=== PATIENT | female | born 1955 | race Caucasian/White ===

== ENCOUNTER → 2018-07-22 | Outpatient (REF) | payer OTHER ==
[2018-07-22 18:55] LABS: APPEARANCE, URINE CLEAR (CLEAR); BACTERIA, URINE AUTO NEGATIVE (NEGATIVE); BILIRUBIN, URINE AUTO NEGATIVE (NEGATIVE); BLOOD, URINE BLOOD NEGATIVE (NEGATIVE); COLOR, URINE YELLOW (YELLOW); GLUCOSE, URINE (UA) AUTO NEGATIVE (NEGATIVE); KETONE, URINE AUTO NEGATIVE (NEGATIVE); LEUKOCYTE ESTERASE, URINE AUTO NEGATIVE (NEGATIVE); NITRITE, URINE AUTO NEGATIVE (NEGATIVE); PROTEIN, URINE AUTO NEGATIVE (NEGATIVE); RBC, URINE AUTO 0 /HPF (0-3); SPECIFIC GRAVITY URINE AUTO 1.023 (1.002-1.035); SQUAMOUS EPITHELIAL CELL UR AU 0 /HPF (0-6); WBC, URINE AUTO 1 /HPF (0-3)
== END ==
LOC: M SMT 16:55
DX: R32 Unspecified urinary incontinence (principal)
CPT/HCPCS: 81001

== ENCOUNTER 2019-07-14 09:54 | Emergency (ER) | payer MEDICARE, OTHER ==
[~2019-07-14] VITALS: Ht 160 cm; Wt 86.5 kg
[~2019-07-14 09:54] MED LIST: ASPI81TA7 PO; COLA50CA3 PO; COZA100T2 PO; CYMB60CA3 PO; FLOVENT INH; GABAPOW41 PO; LANTUS INSULIN INJ; LASIX PO; LISIPOW PO; LOSARTAN PO; METFORMIN PO; NITROGLYCERIN SL; OMEPPOW18 PO; OXYC1TAB23 PO; POTA-77 PO; SIMVPOW2 PO; SKELAXIN PO; TOPA25TA PO; TRAVATAN EYE DROPS OU; ZEST10TA4 PO
[2019-07-14] MEDS ORDERED: ACETAMINOPHEN 500 MG TAB PO ONE (11:00)
[2019-07-14] MEDS ORDERED: KETOROLAC 30 MG/ML VIAL (J1885) IV ONE (11:00)
[2019-07-14] MEDS ORDERED: diphenhydrAMINE INJ 50MG/ML VIAL (J1200) IV ONE (11:00)
[2019-07-14] MEDS ORDERED: METOCLOPRAMIDE INJ 10MG/2ML VIAL (J2765) IV ONE (11:00)
[2019-07-14] MEDS ORDERED: NS 1,000 ML IV ONE (11:00)
[2019-07-14 11:14] LABS: HEMATOCRIT 37.3 % (36.0-47.0); HEMOGLOBIN 12.4 g/dl (12.0-15.5); MEAN CORPUSCULAR HEMOGLOBIN 29.5 pg (27.0-33.0); MEAN CORPUSCULAR HGB CONC 33.2 g/dl (32.0-36.5); MEAN CORPUSCULAR VOLUME 88.6 fl (80.0-96.0); PLATELET COUNT, AUTOMATED 157 10^3/uL (150-450); RED BLOOD COUNT 4.21 10^6/uL (4.00-5.40); WHITE BLOOD COUNT 8.8 10^3/uL (4.0-10.0)
[2019-07-14] MEDS ORDERED: BRIN1TAB3 PO (11:14)
[2019-07-14] MEDS ORDERED: TRAZ150T90 PO (11:14)
[2019-07-14 11:36] LABS: ERYTHROCYTE SEDIMENTATION RATE 10 mm/hr (0-30)
[2019-07-14 11:39] LABS: BLOOD UREA NITROGEN 17 MG/DL (7-18); CALCIUM LEVEL 8.8 MG/DL (8.8-10.2); CARBON DIOXIDE LEVEL 28 MEQ/L (21-32); CHLORIDE LEVEL 106 MEQ/L (98-107); CREATININE FOR GFR 0.68 MG/DL (0.55-1.30); GLOMERULAR FILTRATION RATE > 60.0 (>45); GLUCOSE, FASTING 109 MG/DL (70-100); POTASSIUM SERUM 3.7 MEQ/L (3.5-5.1); SODIUM LEVEL 138 MEQ/L (136-145)
[2019-07-14] MEDS ORDERED: MAG SULF 1GM/100ML (MAG RUN) 1 GM in IV 1 EA IV ONE (13:00)
[2019-07-14] MEDS ORDERED: dexameTHASONE 4 MG/ML 1ML VIAL (J1100) IV ONE (13:00)
[2019-07-14] MEDS ORDERED: VALPROATE SOD INJ 1,000 MG in D5W 50 ML IV ONE (14:00)
[2019-07-14] MEDS ORDERED: TOPA100T12 PO (16:13)
[2019-07-14 16:45] VITALS: BP 141/78
== END 2019-07-14 16:47 | disposition home or self-care (01) ==
LOC: M ED 09:54
DX: G43.709 Chronic migraine without aura, not intractable, without status migrainosus (principal); E11.9 Type 2 diabetes mellitus without complications; I11.0 Hypertensive heart disease with heart failure; I50.9 Heart failure, unspecified; J44.9 Chronic obstructive pulmonary disease, unspecified; E78.5 Hyperlipidemia, unspecified; Z79.899 Other long term (current) drug therapy; Z79.82 Long term (current) use of aspirin
CPT/HCPCS: 36415; 80048; 85027; 85652; 86140; 96361; 96365; 96366; 96375; 99284; J1100; J1200; J1885; J2765; J3475

== ENCOUNTER → 2021-06-10 | Outpatient (REF) | payer MEDICARE ==
[~2021-06-10] MED LIST changes: +BRIN1TAB3 PO; +TOPA100T12 PO; +TRAZ150T90 PO
== END ==
LOC: M LAB REF 14:13
PROVIDERS: ATTEND Physician Assistant
DX: L57.0 Actinic keratosis (principal); D48.5 Neoplasm of uncertain behavior of skin